=== PATIENT | female | born 1940 | race Caucasian/White ===

== ENCOUNTER 2017-08-31 23:08 | Emergency (ER) | payer MEDICARE, OTHER ==
--- NOTE | 2017-09-01 00:39 | RADIOLOGY REPORT (SQ) ---
EXAM DESCRIPTION: CT HEAD WITHOUT IV CONTRAST COMPLETED DATE/TME: 08/31/2017 23:47 CLINICAL HISTORY: 77 years Female, fall right eye trauma COMPARISON: None. TECHNIQUE: No contrast. Coronal and sagittal reformat. This exam was performed according to our departmental dose-optimization program, which includes automated exposure control, adjustment of the mA and/or kV according to patient size and/or use of iterative reconstruction technique. FINDINGS: No hemorrhage or infarct. No mass, mass effect, or midline shift. Mild parenchymal volume loss, moderate right supraorbital/frontal scalp swelling. Brain and extra-axial structures appear otherwise intact. IMPRESSION: Right supraorbital scalp swelling.
--- NOTE | 2017-09-01 02:02 | ER Document Report ---
ED General - General Chief Complaint: Fall Stated Complaint: FALL/RIGHT EYEBROW INJURY Time Seen by Provider: 08/31/17 23:36 TRAVEL OUTSIDE OF THE [place] IN LAST 30 DAYS: No - HPI Patient complains to provider of: Right orbital hematoma Notes: Patient coming in for evaluation after a fall patient has a right orbit with hematoma. Patient has history of dementia upon my evaluation delightful although confused. Most of the HPI is obtained from skilled nursing records and previous visits. Patient denies any areas of pain including her head no chest pain no abdominal pain no extremity pain - Related Data Allergies/Adverse Reactions: No Known Allergies Allergy (Unverified 12/26/12 12:54) Past Medical History - Social History Smoking Status: Unknown if Ever Smoked Family History: Reviewed & Not Pertinent - Past Medical History Cardiac Medical History: Denies: Hx Heart Attack, Hx Hypertension Pulmonary Medical History: Denies: Hx Asthma Neurological Medical History: Denies: Hx Cerebrovascular Accident, Hx Seizures GI Medical History: Denies: Hx Hepatitis, Hx Hiatal Hernia, Hx Ulcer Infectious Medical History: Denies: Hx Hepatitis Past Surgical History: Reports: Hx Open Heart Surgery. Denies: Hx Mastectomy, Hx Pacemaker Review of Systems - Review of Systems -: Yes ROS unobtainable due to patient's medical condition - Dementia Physical Exam - Vital signs Vitals: Pulse Resp BP Pulse Ox 82 16 118/60 98 09/01/17 04:04 09/01/17 04:04 09/01/17 04:04 09/01/17 04:04 Interpretation: Normal - General General appearance: Appears well, Alert - HEENT Head: Normocephalic, Atraumatic Eyes: Normal Conjunctiva: Normal Cornea: Normal Extraocular movements intact: Yes Eyelashes: Normal Pupils: PERRL Fundascopic: Normal - Respiratory Respiratory status: No respiratory distress Chest status: Nontender Breath sounds: Normal Chest palpation: Normal - Cardiovascular Rhythm: Regular Heart sounds: Normal auscultation Murmur: No - Abdominal Inspection: Normal Distension: No distension Bowel sounds: Normal Tenderness: Nontender Organomegaly: No organomegaly - Back Back: Normal, Nontender - Extremities General upper extremity: Normal inspection, Nontender, Normal color, Normal ROM , Normal temperature General lower extremity: Normal inspection, Nontender, Normal color, Normal ROM , Normal temperature - Neurological Neuro grossly intact: Yes Cognition: Confused Fifty Six Coma Scale Eye Opening: Spontaneous Abdi Coma Scale Verbal: Oriented Abdi Coma Scale Motor: Obeys Commands Fifty Six Coma Scale Total: 15 Speech: Normal Sensory: Normal - Psychological Associated symptoms: Confused - Skin Skin Temperature: Warm Skin Moisture: Dry Skin Color: Normal Course - Re-evaluation Re-evalutation: 09/01/17 05:[address] was negative reexamination does not reveal any extremities abdomen still nontender. Patient will be discharged home - Vital Signs Vital signs: Temp Pulse Resp BP Pulse Ox 82 16 118/60 98 09/01/17 04:04 09/01/17 04:04 09/01/17 04:04 09/01/17 04:04 Discharge - Discharge Clinical Impression: Fall Qualifiers: Encounter type: initial encounter Qualified Code(s): W19.XXXA - Unspecified fall, initial encounter Contusion of right orbit Qualifiers: Encounter type: initial encounter Qualified Code(s): S05.11XA - Contusion of eyeball and orbital tissues, right eye, initial encounter Condition: Good Disposition: HOME, SELF-CARE Instructions: Contusion ([facility]) Additional Instructions: Patient head CT was negative for any signs of traumatic findings except for a contusion to the right orbit. Please create a safe environment to prevent falls. Return to ER symptoms worsen. Referrals: LOCALMD,NO [Primary Care Provider] - Follow up as needed
[2017-09-01 04:04] VITALS: BP 118/60
== END 2017-09-01 04:05 | disposition home or self-care (01) ==
LOC: ER 23:08
DX: S05.11XA Contusion of eyeball and orbital tissues, right eye, initial encounter (principal); W19.XXXA Unspecified fall, initial encounter; Y92.129 Unspecified place in nursing home as the place of occurrence of the external cause; F03.90 Unspecified dementia, unspecified severity, without behavioral disturbance, psychotic disturbance, mood disturbance, and anxiety
CPT/HCPCS: 70450; 99284

== ENCOUNTER 2017-09-09 08:56 | Emergency (ER) | payer MEDICARE ==
[2017-09-09 09:13] VITALS: BP 147/54
[2017-09-09 10:00] LABS: ABSOLUTE BASOPHILS # (AUTO) 0.1 10^3/uL (0.0-0.2); ABSOLUTE EOSINOPHILS # (AUTO) 0.2 10^3/uL (0.0-0.6); ABSOLUTE LYMPHOCYTES (AUTO) 0.7 10^3/uL (0.5-4.7); ABSOLUTE MONOCYTES (AUTO) 0.5 10^3/uL (0.1-1.4); BASOPHILS % (AUTO) 1.2 % (0-2); EOSINOPHILS % (AUTO) 3.4 % (0-6); HEMATOCRIT 38.3 % (36.0-47.0); HEMOGLOBIN 12.8 g/dL (12.0-15.5); LYMPHOCYTES % (AUTO) 15.8 % (13-45); MEAN CORPUSCULAR HEMOGLOBIN 28.6 pg (27.0-33.4); MEAN CORPUSCULAR HGB CONC 33.4 g/dL (32.0-36.0); MEAN CORPUSCULAR VOLUME 86 fl (80-97); MONOCYTES % (AUTO) 12.3 % (3-13); PLATELET COUNT 210 10^3/uL (150-450); RED BLOOD COUNT 4.48 10^6/uL (3.72-5.28); SEGMENTED NEUTROPHILS % (AUTO) 67.3 % (42-78); TOTAL CELLS COUNTED % (AUTO) 100 %; WHITE BLOOD COUNT 4.4 10^3/uL (4.0-10.5)
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
[2017-09-09 10:16] LABS: APPEARANCE,URINE CLOUDY; BILIRUBIN,URINE NEGATIVE (NEGATIVE); COLOR,URINE YELLOW; GLUCOSE, URINE NEGATIVE (NEGATIVE); KETONES,URINE TRACE mg/dL (NEGATIVE); LEUKOCYTE ESTERASE,URINE LARGE (NEGATIVE); NITRITE,URINE POSITIVE (NEGATIVE); PROTEIN,URINE 100 mg/dL (NEGATIVE); URINE SPECIFIC GRAVITY 1.014
[2017-09-09 10:18] LABS: ALANINE AMINOTRANSFERASE 25 U/L (9-52); ALBUMIN 3.3 g/dL (3.5-5.0); ALKALINE PHOSPHATASE 66 U/L (38-126); ANION GAP 7 (5-19); ASPARTATE AMINO TRANSFERASE 21 U/L (14-36); BILIRUBIN,DIRECT 0.2 mg/dL (0.0-0.4); BILIRUBIN,TOTAL 0.4 mg/dL (0.2-1.3); BLOOD UREA NITROGEN 16 mg/dL (7-20); CALCIUM 8.8 mg/dL (8.4-10.2); CARBON DIOXIDE 30 mmol/L (22-30); CHLORIDE 109 mmol/L (98-107); CREATINE KINASE 76 U/L (30-135); GLUCOSE 88 mg/dL (75-110); POTASSIUM 3.8 mmol/L (3.6-5.0); SODIUM 145.7 mmol/L (137-145); TOTAL PROTEIN 5.6 g/dL (6.3-8.2)
[2017-09-09] MEDS ORDERED: CEPHALEXIN 500 MG CAPSULE PO ONE (10:33)
[2017-09-09] MEDS ORDERED: DIVALPROEX SODIUM 250 MG TABLET.DR PO ONE (10:34)
[2017-09-09] MEDS ORDERED: LORAZEPAM 0.5 MG TABLET PO ONE (10:56)
== END 2017-09-09 13:44 | disposition home or self-care (01) ==
LOC: ER 08:56
DX: N39.0 Urinary tract infection, site not specified (principal); F03.91 Unspecified dementia, unspecified severity, with behavioral disturbance; R41.82 Altered mental status, unspecified; F32.9 Major depressive disorder, single episode, unspecified; F41.9 Anxiety disorder, unspecified; E78.5 Hyperlipidemia, unspecified
CPT/HCPCS: 99285; 51701; 36415; 87086; 82550; 85025; 87088; 80053; 81001; 84484; 80164; 87186; A9270 ×3

== ENCOUNTER 2017-09-20 16:11 | Emergency (ER) | payer MEDICARE ==
--- NOTE | 2017-09-20 17:50 | RADIOLOGY REPORT (SQ) ---
EXAM DESCRIPTION: CT HEAD WITHOUT COMPLETED DATE/TIME: 09/20/2017 5:32 pm REASON FOR STUDY: Fell and hit right occipital back of head. COMPARISON: 09/01/2017 TECHNIQUE: Axial images acquired through the brain without intravenous contrast. Images reviewed wi th bone, brain and subdural windows. Additional sagittal and coronal reconstructions were generated. Images stored on PACS. All CT scanners at this facility use dose modulation, iterative reconstruction, and/or weight based d osing when appropriate to reduce radiation dose to as low as reasonably achievable (ALARA). [facility]: Dose Right [facility]: CareDose [facility]: Dose Right [facility]: Teradose 4D [facility]: Smart Spark[employer] mobile [employer] RADIATION DOSE: CT Rad equipment meets quality standard of care and radiation dose reduction techniq ues were employed. CTDIvol: 53.2 mGy. DLP: 991 mGy-cm.mGy. LIMITATIONS: None. FINDINGS: VENTRICLES: Prominent. CEREBRUM: No masses. No hemorrhage. No midline shift. Areas of low density in the white matter mos t likely due to chronic micro-vascular ischemic change. No evidence for acute infarction. CEREBELLUM: No masses. No hemorrhage. No alteration of density. No evidence for acute infarction. EXTRAAXIAL SPACES: Age-related involutional change. No fluid collections. No masses. ORBITS AND GLOBE: No intra- or extraconal masses. Normal contour of globe without masses. CALVARIUM: No fracture. PARANASAL SINUSES: No fluid or mucosal thickening. SOFT TISSUES: No mass or hematoma. OTHER: No other significant finding. IMPRESSION: CHRONIC CHANGES OF ATROPHY AND MICROVASCULAR ISCHEMIA. NO ACUTE PROCESS. EVIDENCE OF ACUTE STROKE: NO. TECHNICAL DOCUMENTATION: JOB ID: [id number] Quality ID # [id number]: Final reports with documentation of one or more dose reduction techniques (e.g., Au tomated exposure control, adjustment of the mA and/or kV according to patient size, use of iterative reconstruction technique) 2010 [employer]- All Rights Reserved Reading location - IP/workstation name: [email or web address]
[2017-09-20 18:13] LABS: APPEARANCE,URINE SLIGHTLY-CLOUDY; BILIRUBIN,URINE NEGATIVE (NEGATIVE); COLOR,URINE YELLOW; GLUCOSE, URINE NEGATIVE (NEGATIVE); KETONES,URINE NEGATIVE (NEGATIVE); LEUKOCYTE ESTERASE,URINE SMALL (NEGATIVE); NITRITE,URINE NEGATIVE (NEGATIVE); PROTEIN,URINE 30 mg/dL (NEGATIVE); URINE SPECIFIC GRAVITY 1.029
--- NOTE | 2017-09-20 18:41 | ER Document Report ---
ED General - General Chief Complaint: Fall Stated Complaint: FALL, HEAD PAIN Time Seen by Provider: 09/20/17 16:41 Notes: Patient brought in because she reportedly fell and hit the back of her head. She is a resident of the local [facility] dementia facility, the [facility] ([facility] There is no reported loss of consciousness. Patient's mental status is no different than her usual, which is very confused, although pleasant and cooperative. Patient is not able to provide any information. Looking her over, she has a small abrasion of the right elbow and old bruise on her right eye which her daughter says is secondary to where she fell about a month ago and hit her face and required sutures. She also has a lump on the back of her head. No other information available daughter says that when she was here a month ago having fallen, that she had a UTI and daughter believes she probably will has another one at this time. However, the patient does not have any specific symptoms to suggest a UTI. TRAVEL OUTSIDE OF THE [place] IN LAST 30 DAYS: No - Related Data Allergies/Adverse Reactions: No Known Allergies Allergy (Verified 09/20/17 16:24) Past Medical History - Social History Smoking Status: Unknown if Ever Smoked Family History: Reviewed & Not Pertinent Patient has suicidal ideation: No Patient has homicidal ideation: No - Past Medical History Cardiac Medical History: Reports: Hx Hypercholesterolemia Neurological Medical History: Reports: Other - Dementia. Denies: Hx Cerebrovascular Accident, Hx Seizures Psychiatric Medical History: Reports: Hx Depression Past Surgical History: Reports: Hx Open Heart Surgery Review of Systems - Review of Systems -: Yes ROS unobtainable due to patient's medical condition Physical Exam - Vital signs Vitals: Resp BP Pulse Ox 20 134/66 H 98 09/20/17 16:19 09/20/17 16:19 09/20/17 16:19 Interpretation: Normal - Notes Notes: PHYSICAL EXAMINATION: GENERAL: Well-appearing, in no acute distress. Awake and alert and cooperative. However, patient obviously does not understand any conversation and does not follow directions. She says that her daughter who is here is her sister. HEAD: Moderate, 4 cm diameter, soft hematoma of the right occipital scalp. EYES: Pupils equal round and reactive to light, extraocular movements intact. ENT: oropharynx clear without exudates. Moist mucous membranes. Faint dark 2 cm bruise in the upper right maxillary region, just below the right eyelid. NECK: Normal range of motion, supple. No carotid bruits heard. LUNGS: Breath sounds clear and equal bilaterally. HEART: Regular rate and rhythm without murmurs. ABDOMEN: Soft, nontender. No guarding or rebound. No masses. BACK: No tenderness throughout entire back. EXTREMITIES: Normal range of motion without pain. NEUROLOGICAL: Patient speech is difficult to understand what she is saying and for the most part, does not make sense. Gait not tested. Normal sensory, motor, and reflex exams. Awake, alert, but not oriented at all. PSYCH: Unable to assess. SKIN: Warm, dry, no rashes. Minor superficial abrasion about 1 cm diameter over the right olecranon. Course - Vital Signs Vital signs: Temp Pulse Resp BP Pulse Ox 98.0 F 21 H 115/85 92 09/20/17 18:56 09/20/17 19:00 09/20/17 18:01 09/20/17 19:00 - Laboratory Laboratory results interpreted by me: 09/20/17 17:56 Urine Protein 30 H Urine Urobilinogen 4.0 H Ur Leukocyte Esterase SMALL H Discharge - Discharge Clinical Impression: Fall, Contusion of head, UTI (urinary tract infection) Condition: Stable Disposition: HOME, SELF-CARE Additional Instructions: HEAD INJURY PRECAUTIONS: At this point, there is no evidence that your head injury is serious. Observation is necessary, however. Take only clear liquids for the first few hours, unless told otherwise by the doctor. If no pain medication was prescribed, you may take acetaminophen according to the directions on the bottle. Do not take any medication that may alter your level of alertness (unless you've discussed it with the doctor first) . Limit activity for the first 24 hours. Bed rest is best. During the first 24 hours, check to see approximately every two to three hours that the patient is easily arousable, responds normally, and can perform common tasks such as walking without difficulty. Contact your doctor or go to the hospital if any of the following things occur: Persistent vomiting, difficulty in arousing the patient, worsening or continued headache, or failure to improve as expected. Head injuries can cause symptoms that persist for a few days or even a few weeks. CONTUSION: Your injury has resulted in a contusion -- a crushing of the deep tissues. No injury to important structures was detected during the physician's exam. Contusions vary in the amount of pain they cause, and in the length of time required for healing. Typically, the area will become bruised, and will remain painful to touch for two or three weeks. However, most patients are back to working and playing within a few days. After the initial period of rest and cold-packs, your symptoms (together with the doctor's recommendations) will determine how rapidly you can get back to full activity. Usually this means "do what feels okay, but don't do things that hurt." If re-examination was recommended, it's important to follow up as instructed. Call the doctor or return any time if pain increases, if swelling becomes severe, if you develop numbness or weakness in an injured extremity, or if any other alarming symptoms occur. ABRASIONS right elbow: An abrasion is a scraping injury of the skin. Some scarring may result. The seriousness of an abrasion is not always obvious at first. Hidden tissue damage may be present and infection may occur despite proper care. Complete healing may take from ten days to as long as a month. The healing time depends on the depth of the abrasion, and on the amount of crushing of underlying tissues from the injury. Keep the wound and dressing clean. Do not shower or bathe the area until okayed by the doctor. If the dressing gets wet, remove it and blot the wound dry, then reapply a clean dressing. Dressings should be changed every day. Sunscreen should be used for six months after the skin is healed. If any signs of infection occur (swelling, redness, increasing tenderness, red streaks, profuse purulent drainage from the abrasion, tender lumps in the armpit or groin above the abrasion, or fever), see the doctor immediately. USE OF TYLENOL (ACETAMINOPHEN): Acetaminophen may be taken for pain relief or fever control. It's much safer than aspirin, offering a wider range of "safe" dosages. It is safe during . Some brand names are Tylenol, Panadol, Datril, Anacin 3, Tempra, and Liquiprin. Acetaminophen can be repeated every four hours. The following are maximum recommended dosages: WEIGHT Dose Drops Elixir Chewable( 80mg) (LBS.) drprs=droppers tsp=teaspoon >89 pounds or adults 650 mg to 900 mg Acetaminophen can be repeated every four hours. Maximum dose not to exceed 4000 mg a day. These maximum recommended dosages are slightly higher than the dosages written on the product container, but these dosages are very safe and below the toxic dosage for acetaminophen. Possible URINARY TRACT INFECTION: Your evaluation indicates that you have a urinary tract infection. This is due to germs growing in the bladder. This is a common problem. This infection usually responds quickly to antibiotics. Your antibiotic should be taken exactly as prescribed. Drink plenty of fluids -- three to four quarts a day. Occasionally, a bladder anesthetic will be prescribed to help stop the feeling of urgency until the antibiotic has a chance to clear the infection. This may cause your urine to be dark orange. Certain urine infections require a culture. If the doctor obtained a culture, the results will be back in two days. You should call to see if a change in treatment is needed. A repeat urinalysis after you finish treatment is often recommended. The physician will let you know if further testing is required. Call the doctor if you develop fever, chills, flank pain, inability to urinate, or blood in the urine. ANTIBIOTIC THERAPY: You have been given an antibiotic prescription. It's important that you take all the medication, unless instructed otherwise by your physician. Failure to complete the entire course can result in relapse of your condition. Common side effects of antibiotics include nausea, intestinal cramping, or diarrhea. Women may develop vaginal yeast infections, and babies can get yeast (thrush) in the mouth following the use of antibiotics. Contact your physician if you develop significant side effects from this medication. Allergy to this antibiotic can result in hives, wheezing, faintness, or itching. If symptoms of allergy occur, stop the medication and call the doctor. NITROFURANTOIN (MACRODANTIN, MACROBID): You have received a prescription for nitrofurantoin (Macrodantin). This antibiotic is used for urinary tract infections. Women who are or nursing should notify the physician before taking this medicine. If you have ever had a problem caused by this medication in the past, be sure the physician is aware of it. Common side effects of this medicine include nausea, vomiting, or decreased appetite. Notify your physician if these side effects become severe. Immediately stop this medicine and call the physician if you develop cough , shortness of breath, chest pain, weakness, jaundice (yellow color of the skin and whites of the eyes), or a skin rash. FOLLOW-UP CARE: If you have been referred to a physician for follow-up care, call the physician s office for an appointment as you were instructed or within the next two days. If you experience worsening or a significant change in your symptoms, notify the physician immediately or return to the Emergency Department at any time for re-evaluation. Prescriptions: Nitrofurantoin/Nitrofuran Mac [Macrobid 100 mg Capsule] 1 tab PO BID #10 capsule
[2017-09-20] MEDS ORDERED: NITROFURANTOIN MONOHYD/M-CRYST 100 MG CAPSULE PO ONE (18:42)
[2017-09-20 22:53] VITALS: BP 132/65
== END 2017-09-20 21:50 | disposition home or self-care (01) ==
LOC: ER 16:11
DX: S09.90XA Unspecified injury of head, initial encounter (principal); S00.93XA Contusion of unspecified part of head, initial encounter; N39.0 Urinary tract infection, site not specified; W19.XXXA Unspecified fall, initial encounter; Y93.9 Activity, unspecified; Y92.9 Unspecified place or not applicable; Y99.9 Unspecified external cause status; E78.00 Pure hypercholesterolemia, unspecified; F32.9 Major depressive disorder, single episode, unspecified
CPT/HCPCS: 99285; 87086; 81001; 70450; A9270; J8499

== ENCOUNTER 2017-12-22 13:58 | Emergency (ER) | payer MEDICARE ==
--- NOTE | 2017-12-22 14:36 | ER Document Report ---
ED Fall - General Mode of Arrival: Ambulatory Information source: Patient TRAVEL OUTSIDE OF THE [place] IN LAST 30 DAYS: No <GILLIAN BALTAZAR - Last Filed: 12/22/17 14:31> <CAESAR MATAMOROS - Last Filed: 12/22/17 17:25> - General Chief Complaint: Fall Stated Complaint: FALL,HEAD INJURY Time Seen by Provider: 12/22/17 14:24 Notes: Patient is a 77 year old female that presents to the emergency department today with complaints of a fall. EMS states that the patient ran into another member living at the [facility] causing her to fall backwards. Patient has a laceration to her posterior head right of midline. Patient in c-collar. History somewhat limited secondary to the patient's baseline Alzheimer's disease. (GILLIAN BALTAZAR) - Related data Allergies/Adverse Reactions: No Known Allergies Allergy (Verified 12/22/17 14:08) Past Medical History - General Information source: Patient - Social History Smoking Status: Unknown if Ever Smoked Cigarette use (# per day): No Chew tobacco use (# tins/day): No Frequency of alcohol use: None Drug Abuse: None Lives with: Family Family History: Reviewed & Not Pertinent Patient has suicidal ideation: No Patient has homicidal ideation: No - Past Medical History Cardiac Medical History: Reports: Hx Hypercholesterolemia Psychiatric Medical History: Reports: Hx Depression Past Surgical History: Reports: Hx Open Heart Surgery <GILLIAN BALTAZAR - Last Filed: 12/22/17 14:31> Review of Systems - Review of Systems -: Yes ROS unobtainable due to patient's medical condition - somewhat demented Constitutional: See HPI, Other - Fall EENT: No symptoms reported Cardiovascular: No symptoms reported Respiratory: No symptoms reported Gastrointestinal: No symptoms reported Genitourinary: No symptoms reported Female Genitourinary: No symptoms reported Musculoskeletal: No symptoms reported Skin: See HPI, Other - head lac Hematologic/Lymphatic: No symptoms reported Neurological/Psychological: No symptoms reported -: Yes All other systems reviewed and negative <GILLIAN BALTAZAR - Last Filed: 12/22/17 14:31> Physical Exam <GILLIAN BALTAZAR - Last Filed: 12/22/17 14:31> <CAESAR MATAMOROS - Last Filed: 12/22/17 17:25> - Vital signs Vitals: Temp Pulse Resp BP Pulse Ox 97.8 F 71 17 144/77 H 96 12/22/17 14:05 12/22/17 14:05 12/22/17 14:05 12/22/17 14:05 12/22/17 14:05 - Notes Notes: Physical Exam: General: Alert, appears well. HEENT: Normocephalic. 2cm posterior head laceration just right of midline. PERRL. Extraocular movements intact. Oropharynx clear. Neck: Supple. Non-tender. In c-collar. Respiratory: No respiratory distress. Clear and equal breath sounds bilaterally. Cardiovascular: Regular rate and rhythm. Abdominal: Normal Inspection. Non-tender. No distension. Normal Bowel Sounds. Back: Non-tender. No deformity or step off. Extremities: Moves all four extremities. Upper extremities: Normal inspection. Normal ROM. Lower extremities: Normal inspection. No edema. Normal ROM. Neurological: Demented at baseline. Normal speech. Psychological: Normal affect. Normal Mood. Skin: Warm. Dry. Normal color. (GILLIAN BALTAZAR) Course <GILLIAN BALTAZAR - Last Filed: 12/22/17 14:31> - Diagnostic Test Radiology reviewed: Image reviewed, Reports reviewed - CT scan is read as no acute intracranial findings, no soft tissue abnormalities. My review of the CT does show a hematoma in the right occipital region which corresponds to the injury seen on physical exam. <CAESAR MATAMOROS - Last Filed: 12/22/17 17:25> - Re-evaluation Re-evalutation: 12/22/17 16:03 The patient was sent for CT scan of the head and cervical spine due to the fall and the age and the inability to do a good exam because of her dementia. Head CT was done but I am told was at such poor quality could not be read by the radiologist. After I complained about this, they told me that the films actually were good enough to be read and they would now read the films. Cervical spine films were not done because the patient would not stay flat. Her physical exam does not suggest cervical spine injury, she is moving her head and all sorts of directions, and there is no palpation tenderness noted. ( CAESAR MATAMOROS) - Vital Signs Vital signs: Temp Pulse Resp BP Pulse Ox 97.8 F 71 17 144/77 H 96 12/22/17 14:05 12/22/17 14:05 12/22/17 14:05 12/22/17 14:05 12/22/17 14:05 Procedures - Laceration/Wound Repair Right Posterior Head Wound length (cm): 5 Wound's Depth, Shape: Stellate, Contused tissue Laceration pre-procedure: Sterile drapes applied, Shur-Clens applied Anesthetic type: 1% Lidocaine w/epi Volume Anesthetic (mLs): 5 Wound explored: Clean, No foreign body removed Irrigated w/ Saline (mLs): 30 Wound Debrided: Minimal Wound Repaired With: Vicki - 6 vicki Post-procedure NV exam normal: Yes Complications: No <CAESAR MATAMOROS - Last Filed: 12/22/17 17:25> Discharge <GILLIAN BALTAZAR - Last Filed: 12/22/17 14:31> <CAESAR MATAMOROS - Last Filed: 12/22/17 17:25> - Discharge Clinical Impression: Fall from standing Qualifiers: Encounter type: initial encounter Qualified Code(s): W19.XXXA - Unspecified fall, initial encounter Occipital scalp laceration Qualifiers: Encounter type: initial encounter Qualified Code(s): S01.01XA - Laceration without foreign body of scalp, initial encounter Dementia Qualifiers: Dementia type: unspecified type Dementia behavioral disturbance: without behavioral disturbance Qualified Code(s): F03.90 - Unspecified dementia without behavioral disturbance Condition: Stable Disposition: HOME, SELF-CARE Additional Instructions: Scalp Laceration A scalp laceration requires little care. Dressings are applied only if severe bleeding or a large flap are present. Usually, once the cut is stapled, you can ignore it. Simply comb the hair over top of it to hide the stitches and go about your usual routine. You can shampoo your hair as needed starting tomorrow. If you need to wear a special hat or protective helmet for work, be careful that it doesn't press on the area. If crusting is bothersome, you can soften the crusts with Polysporin ointment, then shampoo. Infection in a scalp laceration is rare. If any signs of infection occur ( swelling, redness, increasing tenderness, red streaks, tender lumps in the neck on the side of the laceration, or fever), see the doctor immediately. Return in 10 days for staple removal. Return sooner if any signs of infection. RETURN TO THE EMERGENCY ROOM IF ANY NEW OR WORSENING SYMPTOMS. Mal Attestation: 12/22/17 16:01 I personally performed the services described in the documentation, reviewed and edited the documentation which was dictated to the scribe in my presence, and it accurately records my words and actions. (CAESAR MATAMOROS) Scribe Documentation - Scribe Written by Mal:: Mal Bullock, 12/22/2017 1436 acting as scribe for :: Sukumar <GILLIAN BALTAZAR - Last Filed: 12/22/17 14:31>
[2017-12-22] MEDS ORDERED: LIDOCAINE 1%/EPINEPHRINE INJ 20 ML VIAL INJ ONE (15:03)
--- NOTE | 2017-12-22 16:27 | RADIOLOGY REPORT (SQ) ---
EXAM DESCRIPTION: CT HEAD WITHOUT COMPLETED DATE/TIME: 12/22/2017 4:05 pm REASON FOR STUDY: Fall, hit back of head, dementia COMPARISON: 09/20/2017 TECHNIQUE: Axial images acquired through the brain without intravenous contrast. Images reviewed wi th bone, brain and subdural windows. Images stored on PACS. All CT scanners at this facility use dose modulation, iterative reconstruction, and/or weight based d osing when appropriate to reduce radiation dose to as low as reasonably achievable (ALARA). [facility]: Dose Right [facility]: CareDose [facility]: Dose Right [facility]: Teradose 4D [facility]: [place] RADIATION DOSE: CT Rad equipment meets quality standard of care and radiation dose reduction techniq ues were employed. CTDIvol: 55.2 mGy. DLP: 2002 mGy-cm. mGy. LIMITATIONS: None. FINDINGS: VENTRICLES: Age-appropriate. CEREBRUM: No masses. No hemorrhage. No midline shift. Areas of low density in the white matter mos t likely due to chronic micro-vascular ischemic change. No evidence for acute infarction. CEREBELLUM: No masses. No hemorrhage. No alteration of density. No evidence for acute infarction. EXTRAAXIAL SPACES: Mild age-related involutional change. No fluid collections. No masses. ORBITS AND GLOBE: No intra- or extraconal masses. Normal contour of globe without masses. CALVARIUM: No fracture. PARANASAL SINUSES: No fluid or mucosal thickening. SOFT TISSUES: No mass or hematoma. OTHER: No other significant finding. IMPRESSION: No acute intracranial findings. EVIDENCE OF ACUTE STROKE: NO. TECHNICAL DOCUMENTATION: JOB ID: [id number] [place]-[id number] Quality ID # [id number]: Final reports with documentation of one or more dose reduction techniques (e.g., Au tomated exposure control, adjustment of the mA and/or kV according to patient size, use of iterative reconstruction technique) 2010 [employer]- All Rights Reserved Reading location - IP/workstation name: [email or web address]
[2017-12-22 17:56] VITALS: BP 109/70
== END 2017-12-22 18:00 | disposition home or self-care (01) ==
LOC: ER 13:58
PROC: 0HQ0XZZ Repair Scalp Skin, External Approach (ICD-10-PCS; principal; 2017-12-22)
DX: S01.01XA Laceration without foreign body of scalp, initial encounter (principal); W18.09XA Striking against other object with subsequent fall, initial encounter; Y92.129 Unspecified place in nursing home as the place of occurrence of the external cause; G30.9 Alzheimer's disease, unspecified; F02.80 Dementia in other diseases classified elsewhere, unspecified severity, without behavioral disturbance, psychotic disturbance, mood disturbance, and anxiety; E78.00 Pure hypercholesterolemia, unspecified
CPT/HCPCS: 99284; 70450; 12002; J3490

== ENCOUNTER 2018-01-31 15:52 | Emergency (ER) | payer MEDICARE ==
[2018-01-31 16:15] VITALS: BP 152/71
--- NOTE | 2018-01-31 16:45 | ER Document Report ---
ED Fall - General Chief Complaint: Fall Stated Complaint: FALL Time Seen by Provider: 01/31/18 15:57 Mode of Arrival: Medic Information source: Patient Notes: Patient is 77-year-old female brought here from [facility] Supposedly patient suffered a fall but that was unwitnessed it is their policy no matter what to send patient over to be evaluated if they have a unwitnessed fall and patient has no complaints. According to medics the was a fall from standing there were no chairs locally but she had no loss of consciousness as was reported and patient had no complaints as to headache or other injuries. TRAVEL OUTSIDE OF THE [place] IN LAST 30 DAYS: No - HPI Occurred: Just prior to arrival Where: Skilled Nursing Context: Tripped, Lost balance Associated symptoms: None Severity: None Pain Level: Denies Prehospital interventions: No: C-collar, Backboard - Related data Allergies/Adverse Reactions: No Known Allergies Allergy (Verified 12/22/17 14:08) Past Medical History - General Information source: Patient, Emergency Med Personnel Cannot obtain history due to: Dementia - Social History Smoking Status: Former Smoker Cigarette use (# per day): No Chew tobacco use (# tins/day): No Smoking Education Provided: No Frequency of alcohol use: None Drug Abuse: None Family History: Reviewed & Not Pertinent Patient has suicidal ideation: No Patient has homicidal ideation: No - Past Medical History Cardiac Medical History: Reports: Hx Hypercholesterolemia Renal/ Medical History: Denies: Hx Peritoneal Dialysis Psychiatric Medical History: Reports: Hx Depression Past Surgical History: Reports: Hx Open Heart Surgery Review of Systems - Review of Systems Constitutional: No symptoms reported EENT: No symptoms reported Cardiovascular: No symptoms reported Respiratory: No symptoms reported Gastrointestinal: No symptoms reported Genitourinary: No symptoms reported Female Genitourinary: No symptoms reported Musculoskeletal: No symptoms reported Skin: No symptoms reported Hematologic/Lymphatic: No symptoms reported Neurological/Psychological: See HPI, Confusion, Dementia Physical Exam - Vital signs Vitals: Temp Pulse Resp BP Pulse Ox 98.5 F 81 18 152/71 H 100 01/31/18 16:11 01/31/18 16:11 01/31/18 16:11 01/31/18 16:11 01/31/18 16:11 Interpretation: Hypertensive - Notes Notes: PHYSICAL EXAMINATION: GENERAL: Patient is a well-nourished well-developed 77-year-old female who is in no distress at all on physical exam tonight. She is pleasant and inquisitive. HEAD: Atraumatic, normocephalic. Physical inspection of the head shows no sign of abrasions or hematomas no ecchymosis. EYES: Pupils equal round and reactive to light, extraocular movements intact, conjunctiva are normal. ENT: Nares patent, oropharynx clear without exudates. Moist mucous membranes. NECK: examination of the neck and cervical spine area shows patient has full range of motion without any discomfort. Palpation of the cervical spine posteriorly shows no tenderness to palpation. She is able to fully flex and extend without pain and is able to rotate both right and left without any discomfort. This is all active range of motion. LUNGS: Breath sounds clear to auscultation bilaterally and equal. No wheezes rales or rhonchi. HEART: Regular rate and rhythm without murmurs ABDOMEN: Soft, nontender, nondistended abdomen. No guarding, no rebound. No masses appreciated. And further inspection shows there is no signs of ecchymosis no hematomas on her trunk and abdomen Female : deferred Musculoskeletal: Normal range of motion, no pitting or edema. No cyanosis. Again physical inspection of the skin areas does not show any sign of ecchymosis or abrasions. Patient is able to follow directions and lift her legs without any discomfort also been them while laying in bed. She has good pulses distally good femoral pulses and good popliteal pulses. Her DTR exam is normal. NEUROLOGICAL: Normal speech Normal sensory, motor exams PSYCH: Normal mood, happy mood SKIN: Warm, Dry, normal turgor, no rashes or lesions noted. Course - Re-evaluation Re-evalutation: 01/31/18 16:45 Physical exam did not yield any signs of an acute process. Patient appears normal with she does not not have any complaints and she is a happy person she does whatever you asked her to do and again can find no sign of acute trauma. We are going to discharge her back to [facility] and her activity will be as tolerated. - Vital Signs Vital signs: Temp Pulse Resp BP Pulse Ox 98.5 F 81 18 152/71 H 100 01/31/18 16:23 01/31/18 16:11 01/31/18 16:23 01/31/18 16:11 01/31/18 16:23 Discharge - Discharge Clinical Impression: Fall Qualifiers: Encounter type: initial encounter Qualified Code(s): W19.XXXA - Unspecified fall, initial encounter Additional Instructions: Patient had an unwitnessed fall but has no injury. We have worked with her extensively we have gone over her with a fine tooth comb and we cannot find any abrasions no ecchymosis and no injuries. At present she can go back to [place] and continue her daily routines. Right now there is nothing to diagnose and did not no orders to follow she can return to normal activity. If there is any concerns she can be sent back and we can evaluate her further but we did not see anything from the top of her head to the base of her feet. Forms: Elevated Blood Pressure
== END 2018-01-31 17:08 ==
LOC: ER 15:52
DX: Z04.3 Encounter for examination and observation following other accident (principal); F03.90 Unspecified dementia, unspecified severity, without behavioral disturbance, psychotic disturbance, mood disturbance, and anxiety; Z87.891 Personal history of nicotine dependence
CPT/HCPCS: 99284